=== PATIENT | female | born 1985 | race Caucasian/White ===

== ENCOUNTER 2017-02-21 07:13 | Day surgery (SDC) | payer BC ==
[2017-02-20 10:37] VITALS: BP 137/84
[~2017-02-21] VITALS: Ht 172.7 cm; Wt 77.0 kg
[~2017-02-21 07:13] MED LIST: EPINEPHRINE 1 MG/ML, 1ML ONE; FENTANYL PF 250 MCG/5ML ONE; LIDOCAINE/PF 1%, 30ML ONE; MIDAZOLAM 1 MG/ML, 2ML ONE; NONE PER PT; ROPIvacaine/PF 0.5%, 30 ML ONE
[2017-02-21] MEDS ORDERED: IBUP-1223 PO (08:01)
[2017-02-21] MEDS ORDERED: LACTATED RINGERS 1,000 ML IV SCH (08:03)
[2017-02-21] MEDS ORDERED: LIDOCAINE 1%, 2ML ONE (08:08)
[2017-02-21 08:16] LABS: HCG UR LOT HCG7030192
[2017-02-21] MEDS ORDERED: LIDOCAINE 1%, 2ML SQ PRN (08:30)
[2017-02-21 08:34] LABS: HCG UR OBC PASS
[2017-02-21] MEDS ORDERED: ROPIvacaine/PF 0.5%, 30 ML ONE ×2 (08:41→08:54)
[2017-02-21] MEDS ORDERED: FENTANYL PF 100 MCG/2ML ONE ×2 (08:41→10:13)
[2017-02-21] MEDS ORDERED: MIDAZOLAM 1 MG/ML, 2ML ONE (08:42)
[2017-02-21] MEDS ORDERED: CEFAZOLIN 1,000 MG ONE (08:53)
[2017-02-21] MEDS ORDERED: DEXAMETHASONE 4 MG/ML, 1ML ONE (08:53)
[2017-02-21] MEDS ORDERED: GLYCOPYRROLATE 0.2MG/1ML, 5ML ONE ×2 (08:53)
[2017-02-21] MEDS ORDERED: ONDANSETRON 2MG/ML, 2ML ONE (08:53)
[2017-02-21] MEDS ORDERED: KETOROLAC 30 MG/1 ML ONE (08:53)
[2017-02-21] MEDS ORDERED: PROPOFOL 10 MG/ML, 50ML ONE (08:53)
[2017-02-21] MEDS ORDERED: ROPIvacaine/PF 0.5%, 30 ML INFIL ONE (09:26)
[2017-02-21] MEDS ORDERED: LIDOCAINE 1%-EPI 1:100K, 30ML INFIL ONE (09:26)
[2017-02-21] MEDS ORDERED: OXYcodone 5 MG/5 ML ORAL.SOL UDC PO PRN (09:30)
[2017-02-21] MEDS ORDERED: PROMETHAZINE 25 MG/ML, 1ML IV PRN (09:30)
[2017-02-21] MEDS ORDERED: ACETAMINOPHEN 325 MG TABLET PO PRN (09:30)
[2017-02-21] MEDS ORDERED: ACETAMINOPHEN 650 MG/20.3 ML UDC ONE (10:12)
[2017-02-21] MEDS ORDERED: MEPERIDINE/PF 25MG/0.5ML ONE (10:13)
[2017-02-21] MEDS ORDERED: OXYcodone 5 MG/5 ML ORAL.SOL UDC ONE (10:13)
[2017-02-21] MEDS: FENTANYL PF 100 MCG/2ML IV PRN ×4 (10:21→11:05)
[2017-02-21] MEDS ORDERED: MEPERIDINE/PF 25MG/0.5ML IVPush PRN (10:30)
[2017-02-21] MEDS ORDERED: MORPHINE SULFATE 4 MG/ML, 1ML IVPush PRN (13:30)
[2017-02-21] MEDS ORDERED: morphine SULFATE 10 MG/ML, 1ML ONE (13:36)
== END 2017-02-21 14:35 ==
LOC: OUT 07:13
PROVIDERS: ATTEND Orthopaedic Surgery
DX: S83.242A Other tear of medial meniscus, current injury, left knee, initial encounter (principal); S83.512A Sprain of anterior cruciate ligament of left knee, initial encounter; M65.862 Other synovitis and tenosynovitis, left lower leg; X58.XXXA Exposure to other specified factors, initial encounter; Y93.89 Activity, other specified; Y92.89 Other specified places as the place of occurrence of the external cause; Y99.8 Other external cause status
CPT/HCPCS: 29881; 29888; 73560; 76000; 81025; C1713; C1762; J0171; J0690; J1100; J1885; J2175; J2250; J2405; J2704; J2795; J3010; J3490